=== PATIENT | female | born 1980 | race African-American/Black ===

== ENCOUNTER 2022-04-22 01:26 | Emergency (ER) | payer BC, MEDICARE ==
[~2022-04-22] VITALS: Ht 157.5 cm; Wt 52.4 kg
[2022-04-22 02:00] VITALS: BP 144/88
[2022-04-22 06:20] LABS: BASOPHILS % 0.9 % (0.0-2.0); EOSINOPHILS % 0.1 % (0.0-5.0); HEMATOCRIT. 24.2 % (36.0-48.0); HEMOGLOBIN. 7.4 g/dL (12.0-16.0); LYMPHOCYTES % 20.8 % (20.0-50.0); MEAN CORPUSCULAR HEMOGLOBIN 21.1 pg (28.0-32.0); MEAN CORPUSCULAR VOLUME 69.4 fL (81.0-99.0); MEAN PLATELET VOLUME 7.3 fl (7.4-10.4); MONOCYTES % 3.9 % (2.0-8.0); NEUTROPHILS % 74.3 % (40.0-76.0); PLATELET 487 x1000/uL (130-400); RED BLOOD CELL COUNT 3.48 mill/uL (4.2-5.4); RED CELL DISTRIBUTION WIDTH 20.2 % (11.6-14.6)
[2022-04-22 06:28] LABS: CHLORIDE 109 mEq/L (98-107)
[2022-04-22 07:23] LABS: CLARITY URINE CLEAR (CLEAR); COLOR URINE YELLOW (YELLOW); KETONES URINE 2+ (NEGATIVE); LEUKOCYTE ESTERASE URINE NEGATIVE (NEGATIVE); NITRITE URINE NEGATIVE (NEGATIVE); OCCULT BLOOD URINE NEGATIVE (NEGATIVE); PROTEIN URINE NEGATIVE (NEGATIVE); SPECIFIC GRAVITY URINE 1.017 (1.005-1.030); UROBILINOGEN URINE 0.2 E.U./dL (0.2-1.0)
[2022-04-22 09:08] LABS: PLATELET ESTIMATE INCREASED
== END 2022-04-22 15:32 | disposition home or self-care (01) ==
LOC: ER 01:26
DX: S00.93XA Contusion of unspecified part of head, initial encounter (principal); D50.9 Iron deficiency anemia, unspecified; Y04.0XXA Assault by unarmed brawl or fight, initial encounter; Y93.89 Activity, other specified; Y92.89 Other specified places as the place of occurrence of the external cause; Y99.8 Other external cause status
CPT/HCPCS: 36415; 74176; 76856; 80053; 81003; 81025; 85025; 99284